=== PATIENT | male | born 1980 | race Caucasian/White ===

== ENCOUNTER 2018-11-19 16:11 | Emergency (ER) | payer SELFPAY ==
[~2018-11-19] VITALS: Ht 170.2 cm; Wt 72.6 kg
[2018-11-19 16:37] VITALS: BP 137/87
--- NOTE | 2018-11-19 16:53 | PHYS DOC ---
Past History Past Medical History: Hepatitis, Kidney Stones Past Surgical History: Other Alcohol Use: None Drug Use: None Adult General Chief Complaint Chief Complaint: SKIN PROBLEM HPI HPI 38-year-old male presents with rash and poly joint pain. The patient just got out of [facility] one week ago today. The next day he had a fever of 102 and broke out in a rash all over his body. The patient was admitted to [facility] on Thursday and Thursday. He was reported to have IV antibiotics. He then left that facility. The patient comes our facility today because he is not getting any better. His rash is continuing to spread now has pal on the posterior of his lower legs. He continues to be very pruritic. He has significant swelling of his bilateral hands and bilateral ankles. They're hot to the touch. He has a history of hep C. Patient does not currently have a fever. He has no idea how he got this rash or what is causing it. Review of Systems Review of Systems Constitutional: Denies fever or chills [] Eyes: Denies change in visual acuity, redness, or eye pain [] HENT: Denies nasal congestion or sore throat [] Respiratory: Denies cough or shortness of breath [] Cardiovascular: No additional information not addressed in HPI [] GI: Denies abdominal pain, nausea, vomiting, bloody stools or diarrhea [] : Denies dysuria or hematuria [] Musculoskeletal: Poly joint pain [] Integument: Rash [] Neurologic: Denies headache, focal weakness or sensory changes [] Endocrine: Denies polyuria or polydipsia [] All other systems were reviewed and found to be within normal limits, except as documented in this note. Physical Exam Physical Exam Constitutional: Well developed, well nourished, no acute distress, non-toxic appearance. [] HENT: Normocephalic, atraumatic, bilateral external ears normal, oropharynx moist, no oral exudates, nose normal. [] Eyes: PERRLA, EOMI, conjunctiva normal, no discharge. [] Neck: Normal range of motion, no tenderness, supple, no stridor. [] Cardiovascular:Heart rate regular rhythm, no murmur [] Lungs & Thorax: Bilateral breath sounds clear to auscultation [] Abdomen: Bowel sounds normal, soft, no tenderness, no masses, no pulsatile masses. [] Skin: Erythematous papules all over the patient's body. Many are excoriated and open. Multiple stages of healing. None appear acutely infected.[] Back: No tenderness, no CVA tenderness. [] Extremities: Erythema and warmth of the bilateral hands and bilateral ankles. Severe swelling of the bilateral ankles. [] Neurologic: Alert and oriented X 3, normal motor function, normal sensory function, no focal deficits noted. [] Psychologic: Affect normal, judgement normal, mood normal. [] Current Patient Data Vital Signs Vital Signs Date Time Temp Pulse Resp B/P (MAP) Pulse Ox O2 Delivery O2 Flow Rate FiO2 11/19/18 16:37 99.8 114 22 94 Room Air EKG EKG [] Radiology/Procedures Radiology/Procedures [] Course & Med Decision Making Course & Med Decision Making Pertinent Labs and Imaging studies reviewed. (See chart for details) The patient has a diffuse rash and probably joint arthritis. His labs are significant for a mildly elevated white count and elevated liver enzymes. He does not have a fever. I discussed the patient with Dr. Yoder, hospitalist at [facility] and he believes the patient can be discharged on steroids and antihistamines. He will need an outpatient workup of his joint inflammation and hepatitis. I discussed this with the patient and the patient is willing to try this treatment. I will give him 30 mg of Toradol in the ED and 125 mg of Solu-Medrol. I'll discharge him with 7 days of prednisone 40 mg daily. We'll also discharge him with hydroxyzine and Pepcid. The patient is stable for discharge at this time. [] Dragon Disclaimer Vanesa Disclaimer This electronic medical record was generated, in whole or in part, using a voice recognition dictation system. Departure Departure: Impression: Primary Impression: Hepatitis B infection with hepatitis C infection Additional Impressions: Rash Polyarthralgia Disposition: 01 HOME, SELF-CARE Condition: STABLE Referrals: [facility] (PCP) Patient Instructions: Arthralgia, [id number]-Cbee, Hepatitis C, Resw-di-Cnza Scripts Famotidine (PEPCID) 20 Mg Tablet 1 TAB PO BID PRN for ITCHING, #60 TAB 0 Refills Prov: ARTI BLANCSA DO 11/19/18 Prednisone (PREDNISONE) 20 Mg Tablet 40 MG PO DAILY for arthritis for 7 Days, #14 TAB Prov: ARTI BLANCAS DO 11/19/18 Hydroxyzine Hcl (HYDROXYZINE HCL) 25 Mg Tablet 1 TAB PO TID PRN for ITCHING, #30 TAB Prov: ARTI BLANCAS DO 11/19/18 Problem Qualifiers ARTI BLANCAS DO Nov 19, 2018 16:53
[2018-11-19 17:17] LABS: BASO # 0.3 x10^3/uL (0.0-0.2); BASO % 2 % (0-3); EOS # 0.3 x10^3/uL (0.0-0.7); EOS % 2 % (0-3); HEMATOCRIT 40.5 % (39.0-53.0); HEMOGLOBIN 13.6 g/dL (13.0-17.5); LYMPH # 2.3 x10^3/uL (1.0-4.8); LYMPH % 18 % (24-48); MEAN CORPUSCULAR HEMOGLOBIN 30 pg (25-35); MEAN CORPUSCULAR HGB CONC 34 g/dL (31-37); MEAN CORPUSCULAR VOLUME 89 fL (79-100); MONO # 1.7 x10^3/uL (0.0-1.1); MONO % 13 % (0-9); NEUT # 8.2 x10^3uL (1.8-7.7); NEUT % 64 % (31-73); PLATELET COUNT 379 x10^3/uL (140-400); RED BLOOD COUNT 4.57 x10^6/uL (4.30-5.70); RED CELL DISTRIBUTION WIDTH 14.4 % (11.5-14.5); WHITE BLOOD COUNT 12.8 x10^3/uL (4.0-11.0)
[2018-11-19 17:29] LABS: ALBUMIN 3.2 g/dL (3.4-5.0); ALBUMIN/GLOBULIN RATIO 0.7 (1.0-1.7); CREATININE 1.6 mg/dL (0.7-1.3); GFR 48.1; POTASSIUM 3.9 mmol/L (3.5-5.1); TOTAL BILIRUBIN 0.9 mg/dL (0.2-1.0); URIC ACID 3.8 mg/dL (3.5-7.2)
[2018-11-19] MEDS ORDERED: FAMO-63 PO (18:41)
[2018-11-19] MEDS ORDERED: HYDR25TA PO (18:41)
[2018-11-19] MEDS ORDERED: PRED20TA PO (18:41)
[2018-11-19] MEDS ORDERED: IV NORMAL SALINE 1,000ML 1,000 ML IV ONE (18:45)
[2018-11-19] MEDS ORDERED: KETOROLAC 30 MG/ML VIAL. IV ONE (18:45)
[2018-11-19] MEDS ORDERED: methylPREDNISolone SOD SUCC PF 125 MG/2 ML VIAL. IV ONE (18:45)
[2018-12-05] MEDS ORDERED: APIX5TAB3 PO (11:32)
[2018-12-05] MEDS ORDERED: SULF1TAB24 PO (11:32)
== END 2018-11-19 20:00 | disposition home or self-care (01) ==
LOC: ER 16:11
DX: B19.20 Unspecified viral hepatitis C without hepatic coma (principal); B19.10 Unspecified viral hepatitis B without hepatic coma; R21 Rash and other nonspecific skin eruption; M25.50 Pain in unspecified joint; Z87.442 Personal history of urinary calculi
CPT/HCPCS: 36415; 80053; 84550; 85025; 96374; 96375; 99283; J1885; J2930; J7030

== ENCOUNTER 2018-11-30 20:43 | Inpatient (IN) | payer SELFPAY ==
[~2018-11-30] VITALS: Ht 170.2 cm; Wt 68.1 kg
[~2018-11-30 20:43] MED LIST: FAMO-63 PO; HYDR25TA PO; PRED20TA PO
[2018-11-30] MEDS ORDERED: DIPHTH,PERTUSS(ACELL),TET TOX 0.5 ML DISP.SYRIN. VAX IM ONE (21:15)
--- NOTE | 2018-11-30 21:15 | ED.ADGEN ---
Past History Past Medical History: Hepatitis, Kidney Stones, Other Past Surgical History: Other Alcohol Use: None Drug Use: None Adult General Chief Complaint Chief Complaint ".. I got hep. C.. I was in here the other day for ankle swelling... but today... My lt. leg is hot.. and red.. here near the knee.. and behind.... HPI HPI Patient is a 38 year old male who presents with above hx and development of Lt. leg localized edema and erythema. Pt. patient has cording just above casted posterior thigh. Distal neurovascular equal to right foot. Patient has had MRSA in the past. Patient does have a history of hepatitis C. Patient has past history of polysubstance abuse. Patient has stooped complaints of fever and chills. No previous history of DVTs. No history of coagulopathy. No family history of early coagulopathy problems. Patient does smoke. Review of Systems Review of Systems Constitutional: Denies fever or chills [] Eyes: Denies change in visual acuity, redness, or eye pain [] HENT: Denies nasal congestion or sore throat [] Respiratory: Denies cough or shortness of breath [] Cardiovascular: No additional information not addressed in HPI [] GI: Denies abdominal pain, nausea, vomiting, bloody stools or diarrhea [] : Denies dysuria or hematuria [] Musculoskeletal: Denies back pain or joint pain []complaints of left leg pain as per history of present illness Integument: Denies rash or skin lesions [] Neurologic: Denies headache, focal weakness or sensory changes [] Endocrine: Denies polyuria or polydipsia [] All other systems were reviewed and found to be within normal limits, except as documented in this note. Family History Family History Noncontributory Current Medications Current Medications Current Medications Medications (Trade) Dose Ordered Sig/Allen Start Time Stop Time Status Last Admin Dose Admin Acetaminophen (Tylenol) 650 mg PRN Q4HRS PRN 11/30/18 23:30 12/01/18 23:29 Diphtheria/ Tetanus/Acell Pertussis (Boostrix) 0.5 ml ONCE ONCE 11/30/18 21:15 11/30/18 21:24 DC 11/30/18 23:24 0.5 ML Lactated Ringer's 1,000 ml @ 100 mls/hr Q10H 11/30/18 21:30 12/01/18 07:29 11/30/18 23:22 100 MLS/HR Ondansetron HCl (Zofran) 4 mg PRN Q4HRS PRN 11/30/18 23:30 12/01/18 23:29 Trimethoprim/ Sulfamethoxazole (Bactrim Ds) 1 tab 1X ONCE 11/30/18 21:30 11/30/18 21:31 DC 11/30/18 23:24 1 TAB Allergies Allergies Allergies Coded Allergies Type Severity Reaction Last Updated Verified No Known Drug Allergies 11/19/18 No Physical Exam Physical Exam Constitutional: Moderately acute distress, non-toxic appearance. [] HENT: Normocephalic, atraumatic, bilateral external ears normal, oropharynx moist, no oral exudates, nose normal. Poor dentition Eyes: PERRLA, EOMI, conjunctiva normal, no discharge. [] Neck: Normal range of motion, no tenderness, supple, no stridor. [] Cardiovascular: Tachycardia Heart rate regular rhythm, no murmur [] Lungs & Thorax: Bilateral breath sounds equal apex scattered wheezes auscultation [] Abdomen: Bowel sounds normal, soft, no tenderness, no masses, no pulsatile masses. [] Skin: Warm, dry, no erythema, no rash. [] Back: No tenderness, no CVA tenderness. [] Extremities: No tenderness, no cyanosis, no clubbing, ROM intact, left leg edema., Erythema and cording. Neurologic: Alert and oriented X 3, normal motor function, normal sensory function, no focal deficits noted. [] Psychologic: Affect anxious, judgement normal, mood normal. [] Current Patient Data Vital Signs Vital Signs Date Time Temp Pulse Resp B/P (MAP) Pulse Ox O2 Delivery O2 Flow Rate FiO2 11/30/18 20:48 98.7 111 20 96 Room Air Lab Results Laboratory Tests Test 11/30/18 21:30 11/30/18 22:40 Urine Collection Type Unknown Urine Color Yellow Urine Clarity Clear Urine pH 6.0 Urine Specific [place] 1.020 Urine Protein Neg (NEG-TRACE) Urine Glucose (UA) Neg mg/dL (NEG) Urine Ketones (Stick) Trace mg/dL (NEG) Urine Blood Small (NEG) Urine Nitrite Neg (NEG) Urine Bilirubin Neg (NEG) Urine Urobilinogen Dipstick 2 mg/dL (0.2 mg/dL) Urine Leukocyte Esterase Neg (NEG) Urine RBC Occ /HPF (0-2) Urine WBC 1-4 /HPF (0-4) Urine Squamous Epithelial Cells Occ /LPF Urine Bacteria 0 /HPF (0-FEW) Urine Opiates Screen Pos (NEG) Urine Methadone Screen Pos (NEG) Urine Barbiturates Neg (NEG) Urine Phencyclidine Screen Neg (NEG) Urine Amphetamine/Methamphetamine Pos (NEG) Urine Benzodiazepines Screen Neg (NEG) Urine Cocaine Screen Neg (NEG) Urine Cannabinoids Screen Neg (NEG) Urine Ethyl Alcohol Neg (NEG) White Blood Count 17.5 x10^3/uL (4.0-11.0) H Red Blood Count 5.00 x10^6/uL (4.30-5.70) Hemoglobin 15.1 g/dL (13.0-17.5) Hematocrit 44.2 % (39.0-53.0) Mean Corpuscular Volume 89 fL (79-100) Mean Corpuscular Hemoglobin 30 pg (25-35) Mean Corpuscular Hemoglobin Concent 34 g/dL (31-37) Red Cell Distribution Width 14.8 % (11.5-14.5) H Platelet Count 382 x10^3/uL (140-400) Neutrophils (%) (Auto) 64 % (31-73) Lymphocytes (%) (Auto) 22 % (24-48) L Monocytes (%) (Auto) 12 % (0-9) H Eosinophils (%) (Auto) 2 % (0-3) Basophils (%) (Auto) 0 % (0-3) Neutrophils # (Auto) 11.2 x10^3uL (1.8-7.7) H Lymphocytes # (Auto) 3.8 x10^3/uL (1.0-4.8) Monocytes # (Auto) 2.1 x10^3/uL (0.0-1.1) H Eosinophils # (Auto) 0.3 x10^3/uL (0.0-0.7) Basophils # (Auto) 0.1 x10^3/uL (0.0-0.2) Segmented Neutrophils % 68 % (35-66) H Band Neutrophils % 5 % (0-9) Lymphocytes % 21 % (24-48) L Monocytes % 6 % (0-10) Platelet Estimate Adequate (ADEQUATE) Prothrombin Time 11.0 SEC (9.4-11.4) Prothrombin Time INR 1.1 (0.9-1.1) PTT 28 SEC (23-33) D-Dimer (Latricia) 0.82 mg/L (0.00-0.50) H Sodium Level 132 mmol/L (136-145) L Potassium Level 3.4 mmol/L (3.5-5.1) L Chloride Level 97 mmol/L (98-107) L Carbon Dioxide Level 28 mmol/L (21-32) Anion Gap 7 (6-14) Blood Urea Nitrogen 18 mg/dL (8-26) Creatinine 1.1 mg/dL (0.7-1.3) Estimated GFR (Cockcroft-Gault) 74.1 Glucose Level 89 mg/dL (70-99) Calcium Level 8.7 mg/dL (8.5-10.1) Magnesium Level 1.7 mg/dL (1.8-2.4) L Total Bilirubin 1.2 mg/dL (0.2-1.0) H Direct Bilirubin 0.4 mg/dL (0.0-0.2) H Aspartate Amino Transferase (AST) 199 U/L (15-37) H Alanine Aminotransferase (ALT) 293 U/L (16-63) H Alkaline Phosphatase 113 U/L (46-116) Creatine Kinase 137 U/L (39-308) Troponin I Quantitative < 0.017 ng/mL (0-0.055) EW-Ahb-G-Type Natriuretic Peptide 64 pg/mL (0-124) Total Protein 8.0 g/dL (6.4-8.2) Albumin 3.3 g/dL (3.4-5.0) L Lipase 43 U/L (73-393) L EKG EKG My interpretation EKG shows a sinus rhythm at 97 bpm. No findings acute STEMI with contralateral changes.[] Radiology/Procedures Radiology/Procedures US=Superficial DVT- Occlusive Thrombus thigh to lwer leg mid GSV[] Course & Med Decision Making Course & Med Decision Making Pertinent Labs and Imaging studies reviewed. (See chart for details) . Patient admitted to Dr. Hernandez further evaluation and treatment. [] Final Impression Final Impression 1. Lt. leg edema 2. Hx. Hept. C[] 3. Superficial DVT Lt. leg 4. Leukocytosis 17.5 5. Hx., Polysubstance Abuse 6. Mild Elevation of D-dimer 0.82 7. Hyponatremia 132 8. Elevated AST, ALT, Alk Phos, Bili, 9. Cellulitis Dragon Disclaimer Dragon Disclaimer This electronic medical record was generated, in whole or in part, using a voice recognition dictation system. Discharge Summary Visit Information Final Diagnosis Problems Medical Problems: (1) Cellulitis Status: Acute (2) DVT femoral (deep venous thrombosis) with thrombophlebitis Status: Acute Brief Hospital Course Allergies Allergies Coded Allergies Type Severity Reaction Last Updated Verified No Known Drug Allergies 11/19/18 No Vital Signs Vital Signs Date Time Temp Pulse Resp B/P (MAP) Pulse Ox O2 Delivery O2 Flow Rate FiO2 11/30/18 20:48 98.7 111 20 96 Room Air Lab Results Laboratory Tests Test 11/30/18 21:30 11/30/18 22:40 Urine Collection Type Unknown Urine Color Yellow Urine Clarity Clear Urine pH 6.0 Urine Specific [place] 1.020 Urine Protein Neg (NEG-TRACE) Urine Glucose (UA) Neg mg/dL (NEG) Urine Ketones (Stick) Trace mg/dL (NEG) Urine Blood Small (NEG) Urine Nitrite Neg (NEG) Urine Bilirubin Neg (NEG) Urine Urobilinogen Dipstick 2 mg/dL (0.2 mg/dL) Urine Leukocyte Esterase Neg (NEG) Urine RBC Occ /HPF (0-2) Urine WBC 1-4 /HPF (0-4) Urine Squamous Epithelial Cells Occ /LPF Urine Bacteria 0 /HPF (0-FEW) Urine Opiates Screen Pos (NEG) Urine Methadone Screen Pos (NEG) Urine Barbiturates Neg (NEG) Urine Phencyclidine Screen Neg (NEG) Urine Amphetamine/Methamphetamine Pos (NEG) Urine Benzodiazepines Screen Neg (NEG) Urine Cocaine Screen Neg (NEG) Urine Cannabinoids Screen Neg (NEG) Urine Ethyl Alcohol Neg (NEG) White Blood Count 17.5 x10^3/uL (4.0-11.0) Red Blood Count 5.00 x10^6/uL (4.30-5.70) Hemoglobin 15.1 g/dL (13.0-17.5) Hematocrit 44.2 % (39.0-53.0) Mean Corpuscular Volume 89 fL (79-100) Mean Corpuscular Hemoglobin 30 pg (25-35) Mean Corpuscular Hemoglobin Concent 34 g/dL (31-37) Red Cell Distribution Width 14.8 % (11.5-14.5) Platelet Count 382 x10^3/uL (140-400) Neutrophils (%) (Auto) 64 % (31-73) Lymphocytes (%) (Auto) 22 % (24-48) Monocytes (%) (Auto) 12 % (0-9) Eosinophils (%) (Auto) 2 % (0-3) Basophils (%) (Auto) 0 % (0-3) Neutrophils # (Auto) 11.2 x10^3uL (1.8-7.7) Lymphocytes # (Auto) 3.8 x10^3/uL (1.0-4.8) Monocytes # (Auto) 2.1 x10^3/uL (0.0-1.1) Eosinophils # (Auto) 0.3 x10^3/uL (0.0-0.7) Basophils # (Auto) 0.1 x10^3/uL (0.0-0.2) Segmented Neutrophils % 68 % (35-66) Band Neutrophils % 5 % (0-9) Lymphocytes % 21 % (24-48) Monocytes % 6 % (0-10) Platelet Estimate Adequate (ADEQUATE) Prothrombin Time 11.0 SEC (9.4-11.4) Prothromb Time International Ratio 1.1 (0.9-1.1) Activated Partial Thromboplast Time 28 SEC (23-33) D-Dimer (Latricia) 0.82 mg/L (0.00-0.50) Sodium Level 132 mmol/L (136-145) Potassium Level 3.4 mmol/L (3.5-5.1) Chloride Level 97 mmol/L (98-107) Carbon Dioxide Level 28 mmol/L (21-32) Anion Gap 7 (6-14) Blood Urea Nitrogen 18 mg/dL (8-26) Creatinine 1.1 mg/dL (0.7-1.3) Estimated GFR (Cockcroft-Gault) 74.1 Glucose Level 89 mg/dL (70-99) Calcium Level 8.7 mg/dL (8.5-10.1) Magnesium Level 1.7 mg/dL (1.8-2.4) Total Bilirubin 1.2 mg/dL (0.2-1.0) Direct Bilirubin 0.4 mg/dL (0.0-0.2) Aspartate Amino Transf (AST/SGOT) 199 U/L (15-37) Alanine Aminotransferase (ALT/SGPT) 293 U/L (16-63) Alkaline Phosphatase 113 U/L (46-116) Creatine Kinase 137 U/L (39-308) Troponin I Quantitative < 0.017 ng/mL (0-0.055) FZ-Qdl-M-Type Natriuretic Peptide 64 pg/mL (0-124) Total Protein 8.0 g/dL (6.4-8.2) Albumin 3.3 g/dL (3.4-5.0) Lipase 43 U/L (73-393) Brief Hospital Course Mr. Win is a 38 old male who presented with left leg superficial DVT and cellulitis. Admitted to Discharge Information Condition at Discharge: Improved Dischare Medications Current Medications Lactated Ringer's 1,000 ml @ 100 mls/hr Q10H IV Last administered on at 23:22; Admin Dose 100 MLS/HR; Start 11/30/18 at 21:30; Stop 12/01/18 at 07: 29 Diphtheria/ Tetanus/Acell Pertussis (Boostrix) 0.5 ml ONCE ONCE VAX IM Last administered on 11/30/18at 23:24; Admin Dose 0.5 ML; Start 11/30/18 at 21:15; Stop 11/30/18 at 21:24; Status DC Trimethoprim/ Sulfamethoxazole (Bactrim Ds) 1 tab 1X ONCE PO Last administered on 11/30/18at 23:24; Admin Dose 1 TAB; Start 11/30/18 at 21:30; Stop 11/30/18 at 21:31; Status DC Ondansetron HCl (Zofran) 4 mg PRN Q4HRS PRN IV NAUSEA/VOMITING; Start 11/30/18 at 23:30; Stop 12/01/18 at 23:29 Acetaminophen (Tylenol) 650 mg PRN Q4HRS PRN PO FEVER; Start 11/30/18 at 23:30 ; Stop 12/01/18 at 23:29 Active Scripts Active Pepcid (Famotidine) 20 Mg Tablet 1 Tab PO BID PRN Prednisone 20 Mg Tablet 40 Mg PO DAILY 7 Days Hydroxyzine Hcl 25 Mg Tablet 1 Tab PO TID PRN Dragon Disclaimer This chart was dictated in whole or in part using Voice Recognition software in a busy, high-work load, and often noisy Emergency Department environment. It may contain unintended and wholly unrecognized errors or omissions. LISSY YOUNGER MD Nov 30, 2018 21:15
[2018-11-30] MEDS ORDERED: IV RINGERS SOLUTION,LACTATED 1,000 ML IV SCH (21:30)
[2018-11-30] MEDS ORDERED: SMZ/TMP 800/160MG TABLET. PO ONE (21:30)
--- NOTE | 2018-11-30 21:56 | EKG ---
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
[2018-11-30 22:01] LABS: BARBITURATES NEG (NEG); BENZODIAZEPINES NEG (NEG); CANNABINOIDS NEG (NEG); COCAINE NEG (NEG); METHADONE POS (NEG); OPIATES POS (NEG); PHENCYCLIDINE NEG (NEG)
[2018-11-30 22:02] LABS: BILIRUBIN,URINE NEG (NEG); CLARITY,URINE CLEAR; COLOR,URINE YELLOW; GLUCOSE,URINE NEG (NEG); NITRITE,URINE NEG (NEG); UROBILINOGEN,URINE 2 mg/dL (0.2 mg/dL)
[2018-11-30 22:03] LABS: AMPHETAMINE/METHAMPHETAMINE POS (NEG); BACTERIA,URINE 0 /HPF (0-FEW); RBC,URINE OCC /HPF (0-2); SQUAMOUS EPITHELIAL CELL,UR OCC /LPF
[2018-11-30 23:01] LABS: BASO # 0.1 x10^3/uL (0.0-0.2); BASO % 0 % (0-3); EOS # 0.3 x10^3/uL (0.0-0.7); EOS % 2 % (0-3); HEMATOCRIT 44.2 % (39.0-53.0); HEMOGLOBIN 15.1 g/dL (13.0-17.5); LYMPH # 3.8 x10^3/uL (1.0-4.8); LYMPH % 22 % (24-48); MEAN CORPUSCULAR HEMOGLOBIN 30 pg (25-35); MEAN CORPUSCULAR HGB CONC 34 g/dL (31-37); MEAN CORPUSCULAR VOLUME 89 fL (79-100); MONO # 2.1 x10^3/uL (0.0-1.1); MONO % 12 % (0-9); NEUT # 11.2 x10^3uL (1.8-7.7); NEUT % 64 % (31-73); PLATELET COUNT 382 x10^3/uL (140-400); RED CELL DISTRIBUTION WIDTH 14.8 % (11.5-14.5); WHITE BLOOD COUNT 17.5 x10^3/uL (4.0-11.0)
[2018-11-30 23:20] LABS: % BANDS 5 % (0-9); % LYMPHS 21 % (24-48); % MONOS 6 % (0-10); % SEGS 68 % (35-66); PLT ESTIMATE ADEQUATE (ADEQUATE)
[2018-11-30 23:22] LABS: ALBUMIN 3.3 g/dL (3.4-5.0); CALCIUM 8.7 mg/dL (8.5-10.1); CREATININE 1.1 mg/dL (0.7-1.3); DIRECT BILIRUBIN 0.4 mg/dL (0.0-0.2); GFR 74.1; MAGNESIUM 1.7 mg/dL (1.8-2.4); POTASSIUM 3.4 mmol/L (3.5-5.1); TOTAL BILIRUBIN 1.2 mg/dL (0.2-1.0)
[2018-11-30] MEDS ORDERED: ONDANSETRON PF 4 MG/2 ML VIAL. IV PRN (23:30)
[2018-11-30] MEDS ORDERED: ENOXAPARIN ** NOTE DOSE ** SYRINGE SQ ONE (23:45)
[2018-11-30] MEDS ORDERED: ANTI-COAG MONITOR BY PHARMACY. MC PRN (23:45)
[2018-11-30] MEDS ORDERED: cefTRIAXone IM 1 GM VIAL IM ONE (23:45)
--- NOTE | 2018-11-30 23:46 | RAD ---
Chest AP portable at 2124: Reason for examination: Chest pain and lower extremity pain and swelling. Congestive heart failure. The heart size is normal. Mediastinum is unremarkable. Lung muller are clear. No acute bony abnormalities are seen. Old healed rib fracture at the left seventh rib posteriorly. IMPRESSION: No acute cardiopulmonary disease. Left lower extremity venous Doppler: The left lower extremity venous system was evaluated from the left common femoral and greater saphenous veins distally to the calf veins with grayscale imaging, color-flow imaging and spectral analysis. The greater saphenous vein shows thrombosis with occlusion from the distal thigh into the midcalf with adjacent edema. The remaining venous structures shows normal blood flow without deep venous thrombosis and normal response to compression and augmentation. IMPRESSION: Occlusive thrombus in the greater saphenous vein from the distal thigh to the mid calf. No other deep venous thrombosis evident. Electronically signed by: Meli Rojas MD (11/30/2018 11:43 PM) [facility]
[2018-12-01] MEDS ORDERED: KETOROLAC 30 MG/ML VIAL. IV ONE (00:45)
[2018-12-01 01:01] VITALS: BP 147/86
[2018-12-01 04:57] VITALS: BP 109/59
[2018-12-01 07:01] LABS: BASO % 0 % (0-3); EOS # 0.2 x10^3/uL (0.0-0.7); EOS % 2 % (0-3); HEMATOCRIT 39.9 % (39.0-53.0); HEMOGLOBIN 13.9 g/dL (13.0-17.5); LYMPH # 3.3 x10^3/uL (1.0-4.8); LYMPH % 20 % (24-48); MEAN CORPUSCULAR HEMOGLOBIN 31 pg (25-35); MEAN CORPUSCULAR HGB CONC 35 g/dL (31-37); MEAN CORPUSCULAR VOLUME 88 fL (79-100); MONO # 1.9 x10^3/uL (0.0-1.1); MONO % 12 % (0-9); NEUT # 10.8 x10^3uL (1.8-7.7); NEUT % 67 % (31-73); PLATELET COUNT 302 x10^3/uL (140-400); RED BLOOD COUNT 4.53 x10^6/uL (4.30-5.70); RED CELL DISTRIBUTION WIDTH 14.5 % (11.5-14.5); WHITE BLOOD COUNT 16.3 x10^3/uL (4.0-11.0)
[2018-12-01 07:19] LABS: CALCIUM 8.1 mg/dL (8.5-10.1); GFR 82.8; POTASSIUM 3.9 mmol/L (3.5-5.1)
[2018-12-01] MEDS ORDERED: IPRATRPIUM/ALBUTEROL 0.5/2.5MG 3 ML NEBU. NEB SCH (08:00)
[2018-12-01] MEDS ORDERED: FAMOTIDINE 20 MG TABLET PO PRN (09:00)
[2018-12-01] MEDS: MAGNESIUM OXIDE 400 MG TABLET PO SCH ×2 (09:13→22:29)
[2018-12-01] MEDS: LACTOBACILLUS RHAMNOSUS GG 1 CAPSULE. PO SCH ×2 (09:13→22:29)
[2018-12-01] MEDS: SMZ/TMP 800/160MG TABLET. PO SCH ×2 (09:14→22:30)
[2018-12-01] MEDS: ENOXAPARIN ** NOTE DOSE ** SYRINGE SQ SCH ×2 (09:15→22:30)
[2018-12-01] MEDS ORDERED: IPRATRPIUM/ALBUTEROL 0.5/2.5MG 3 ML NEBU. NEB PRN (09:15)
[2018-12-01 11:07] VITALS: BP 132/79
[2018-12-01] MEDS: ACETAMINOPHEN 325 MG TABLET PO PRN ×3 (11:47→22:35)
[2018-12-01 14:57] VITALS: BP 106/73
--- NOTE | 2018-12-01 15:35 | HP ---
ADMIT DATE: 11/30/2018 HISTORY OF PRESENT ILLNESS: The patient is a 38-year-old male patient who presented to the Emergency Room with a complaint of pain and swelling of his left ankle that has been going on for 4 days. His leg was red and hot to touch near the medial aspect and posterior aspect of left knee. He was evaluated in the Emergency Room and was diagnosed with left lower extremity cellulitis. Also a Doppler ultrasound showed that he has left lower extremity DVT and therefore, the patient was admitted and started on Lovenox. He was also started on IV antibiotic and admitted for further evaluation and treatment. PAST MEDICAL HISTORY: Significant for bilateral nephrolithiasis and chronic hepatitis C. PAST SURGICAL HISTORY: Significant for percutaneous nephrostomy tube placement on both sides. He also has probably cystoscopy and stone retrieval. ALLERGIES: He has no known drug allergies. MEDICATIONS: He is currently on no medication except famotidine 20 mg twice a day. FAMILY HISTORY: He has 1 brother older and he is known to have hepatitis C. His mother is alive at the age of 65 and positive for hepatitis C. His father at age 48 as he was apparently burnt in fire. SOCIAL HISTORY: He is single, has 5 children, a son and 4 daughters. Smokes a pack a day, does not drink alcohol; however, he used heroin, amphetamine. 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 REVIEW OF SYSTEMS: As per history of present illness. PHYSICAL EXAMINATION: GENERAL: When I examined on arrival to the Emergency Room, he was pale, somewhat cachectic, but no jaundice, cyanosis, or thyromegaly. No jugular venous distension. No limb edema. VITAL SIGNS: His heart rate was 111, blood pressure was 164/91, temperature was 98.7, respiratory rate 20, and oxygen saturation was 96%. HEAD, EYES, EARS, NOSE AND THROAT: Showed normocephalic, atraumatic. NECK: Supple. HEART: Showed normal first and second heart sounds. No gallop or murmur. CHEST: Clear to auscultation. No crepitation or rhonchi. ABDOMEN: Scaphoid, soft, nontender. NEUROLOGIC: He was awake, alert, responding appropriately. All his cranial nerves are intact. EXTREMITIES: He moves extremities without difficulty. Examination of the left lower extremity compared to the right lower extremity showed that he has marked swelling and erythema on the medial aspect of the left leg and left thigh, has also some tenderness on the calf muscle. LABORATORY DATA: His lab work on admission showed a white cell count 17,500, hemoglobin 15, hematocrit 44, MCV 89 and platelet count of 382,000 with normal manual differential. His chemistry showed serum sodium of 132, potassium 3.4, chloride 97, bicarbonate 28, anion gap of 7, BUN 18, creatinine 1.1, estimated GFR was 89 mL per minute. His calcium was 8.7, magnesium was 1.7. Total bilirubin slightly elevated. AST, ALT are elevated. Alkaline phosphatase was normal. His total protein was 8, albumin was 3.3. Serum lipase was normal. TSH was normal also, his prothrombin time was 11, INR 1.1, aPTT was 28. D-dimer was elevated at 0.81. Urinalysis was essentially unremarkable and toxic screen was positive for opiates, methadone as well as amphetamine, methamphetamine. ASSESSMENT AND PLAN: The patient was admitted with a left lower extremity cellulitis, started on IV Rocephin and Bactrim. He was also found to have aggressive thrombus in the greater saphenous vein from the distal thigh to the mid calf and no other deep venous thrombosis evident. His chest x-ray basically showed no acute cardiopulmonary disease. He was admitted and was treated with Lovenox 70 mg subQ twice a day for his left lower extremity DVT, was started also on Rocephin and Bactrim for left lower extremity cellulitis. We will follow his labs closely and decide further management accordingly. ADAN GOLDSTEIN MD DR: ISAURA/vangie JOB#: [id number] / [id number]
[2018-12-01 19:58] VITALS: BP 122/76
--- NOTE | 2018-12-01 22:14 | PN ---
DATE: 12/01/2018 SUBJECTIVE: The patient is resting slightly propped up in bed, in no apparent distress. He continued to have some pain in his left lower extremity with redness and swelling. He also spiked his temperature this morning up to 101.1. PHYSICAL EXAMINATION: GENERAL: When I examined him, he looked pale but no jaundice, cyanosis, or thyromegaly. No jugular venous distention. No limb edema. VITAL SIGNS: His heart rate was 95, blood pressure was 132/79, temperature was 101.1, respiratory rate 20, and oxygen saturation was 93% on room air. HEAD, EYES, EARS, NOSE AND THROAT: Showed normocephalic, atraumatic. NECK: Supple. HEART: Showed normal first and second heart sounds with no gallop, rub or murmur. CHEST: Clear to auscultation. No crepitation or rhonchi. ABDOMEN: Distended, soft, nontender. NEUROLOGIC: He is awake, alert, responding appropriately. All cranial nerves intact. He moves extremities without difficulty. SKIN: Examination of the skin showed he continued to have some redness and swelling on the medial aspect of the left leg and left thigh. He has also extensive tattoos covered most of his skin. His intake and output was incompletely recorded. LABORATORY DATA: His lab work showed white cell count slightly down to 16,100, hemoglobin 14, hematocrit 40, MCV 88, and platelet count 302,000. His serum sodium was 133, potassium 3.9, chloride 100, bicarbonate 27, anion gap of 6, BUN 17, creatinine 1, estimated GFR was 111, and glucose was 111, calcium was 8.2. ASSESSMENT: In summary, this is a 38-year-old male patient with known polysubstance abuse as well as known history of chronic hepatitis C, admitted with swelling and pain in the left lower extremity. PLAN: We will continue with IV Rocephin. Continue with Bactrim. Continue with DVT treatment. We will monitor his labs again tomorrow and decide the further management accordingly. ADAN GOLDSTEIN MD DR: ISAURA/vangie JOB#: [id number] / [id number]
[2018-12-02] MEDS ORDERED: CEFU500T46 PO (00:50)
[2018-12-02 01:24] VITALS: BP 109/65
[2018-12-02] MEDS ORDERED: CEPHALEXIN 250 MG CAPSULE PO ONE (02:00)
[2018-12-02 05:20] VITALS: BP 121/78
[2018-12-02 06:16] LABS: HEMATOCRIT 45.8 % (39.0-53.0); HEMOGLOBIN 15.6 g/dL (13.0-17.5); RED BLOOD COUNT 5.1 x10^6/uL (4.30-5.70); RED CELL DISTRIBUTION WIDTH 14.8 % (11.5-14.5); WHITE BLOOD COUNT 15.2 x10^3/uL (4.0-11.0)
[2018-12-02 06:33] LABS: ALBUMIN 2.9 g/dL (3.4-5.0); ALBUMIN/GLOBULIN RATIO 0.7 (1.0-1.7); CALCIUM 8.4 mg/dL (8.5-10.1); CREATININE 0.9 mg/dL (0.7-1.3); GFR 93.5; POTASSIUM 4.5 mmol/L (3.5-5.1); TOTAL BILIRUBIN 0.9 mg/dL (0.2-1.0); TOTAL PROTEIN 6.8 g/dL (6.4-8.2)
[2018-12-02] MEDS ORDERED: ACETAMINOPHEN 325 MG TABLET PO PRN (06:45)
[2018-12-02] MEDS: MAGNESIUM OXIDE 400 MG TABLET PO SCH ×2 (08:16→20:18)
[2018-12-02] MEDS: SMZ/TMP 800/160MG TABLET. PO SCH ×2 (08:16→20:18)
[2018-12-02] MEDS: LACTOBACILLUS RHAMNOSUS GG 1 CAPSULE. PO SCH ×2 (08:16→20:18)
[2018-12-02] MEDS: ENOXAPARIN ** NOTE DOSE ** SYRINGE SQ SCH ×2 (08:19→20:18)
[2018-12-02 10:00] VITALS: BP 127/83
[2018-12-02] MEDS ORDERED: VANCOMYCIN PER PHARMACY MC PRN (12:00)
[2018-12-02] MEDS: oxyCODONE IR 5 MG TABLET PO PRN ×2 (12:26→18:42)
[2018-12-02 14:34] VITALS: BP 118/73
[2018-12-02] MEDS ORDERED: VANCOMYCIN 1.75 GM in IV NORMAL SALINE 500ML 500 ML IV ONE (18:30)
[2018-12-02 19:06] VITALS: BP 121/76
--- NOTE | 2018-12-02 20:23 | PN ---
DATE: 12/02/2018 SUBJECTIVE: The patient is resting flat in bed, complaining of severe pain in his left leg. The erythema and swelling has definitely worsened. His white cell count continues to be high. PHYSICAL EXAMINATION: GENERAL: When I examined him, he looked pale, cachectic, but no jaundice, cyanosis, or thyromegaly. No jugular venous distension. No lower limb edema. VITAL SIGNS: His heart rate was 88, blood pressure was 127/83, temperature was 98, respiratory rate was 20, and oxygen saturation was 95%. HEAD, EYES, EARS, NOSE AND THROAT: Normocephalic, atraumatic. NECK: Supple. HEART: Showed normal first and second sounds. No gallop, rub or murmur. CHEST: Clear to auscultation. No crepitation or rhonchi. ABDOMEN: Distended, soft. NEUROLOGIC: He was sleepy, but arousable. All cranial nerves intact. He moves extremities without difficulty. Examination of the left lower extremity compared to the right showed that there is marked redness, swelling and tenderness on the medial aspect of the left knee, left thigh and the upper part of the left leg. His intake and output were incompletely recorded. LABORATORY DATA: Showed a serum sodium 133, potassium 4.5, chloride 100, bicarbonate 24, anion gap of 9, BUN 12, creatinine 0.9, estimated GFR was 94 mL per minute, his glucose was 90, calcium was 8.4. Total bilirubin and alkaline phosphatase normal. AST, ALT elevated. Total protein was 6.8, albumin 2.9. His prothrombin time was 11, INR 1.1. His treponema pallidum antibodies were nonreactive. Hepatitis A IgM antibody nonreactive; however, he is positive for hepatitis B, C and HIV 1 and 2. ASSESSMENT AND PLAN: Left lower extremity deep venous thrombosis for which he is on Lovenox 1 mg/kg subcutaneously twice a day. His left lower extremity cellulitis for which we need to place a PICC line, start him on vancomycin. We will start him on oxycodone immediate release 5 mg. ADAN GOLDSTEIN MD DR: ISAURA/vangie JOB#: [id number] / [id number]
[2018-12-02 22:09] VITALS: BP 119/76
[2018-12-03] MEDS: VANCOMYCIN 1 GM in IV NORMAL SALINE 250ML 250 ML IV SCH ×3 (02:18→18:10)
[2018-12-03] MEDS: oxyCODONE IR 5 MG TABLET PO PRN ×3 (02:18→16:18)
[2018-12-03 06:04] VITALS: BP 111/70
[2018-12-03] MEDS: SMZ/TMP 800/160MG TABLET. PO SCH ×2 (07:58→20:38)
[2018-12-03] MEDS: ENOXAPARIN ** NOTE DOSE ** SYRINGE SQ SCH ×2 (07:58→20:39)
[2018-12-03] MEDS: LACTOBACILLUS RHAMNOSUS GG 1 CAPSULE. PO SCH ×2 (07:58→20:38)
[2018-12-03 10:41] VITALS: BP 105/66
[2018-12-03 13:11] LABS: HCV ULTRA QUANT PCR See Final Results IU/mL (.)
[2018-12-03 17:42] LABS: VANC TR 10.2 mcg/mL (10.0-20.0)
[2018-12-03 19:20] VITALS: BP 106/70
--- NOTE | 2018-12-03 21:22 | PN ---
DATE: 12/03/2018 SUBJECTIVE: The patient is resting, slightly propped up, sleeping comfortably, in no apparent distress. He is arousable. On questioning him, he continued to complain of pain in his left leg. Although, clinically, the swelling and erythema has much improved. He has afebrile over more than 24 hours now. PHYSICAL EXAMINATION: GENERAL: When I examined him, he looked pale, but no jaundice, cyanosis, or thyromegaly. No jugular venous distention. No limb edema. VITAL SIGNS: His heart rate was 93, blood pressure 121/76, temperature was 98.7, respiratory rate 22, and oxygen saturation was 94%. The rest of clinical examination is stable. EXTREMITIES: His left lower extremity, especially around his left knee medially is still red and swollen, but much improved compared to yesterday. His intake was 1200, no output was recorded. LABORATORY DATA: As of yesterday, his serum sodium was 133, potassium 4.5, chloride 100, bicarbonate 24, anion gap of 9, BUN 12, creatinine 0.9. His AST and ALT are elevated; however, total bilirubin and alkaline phosphatase were normal. ASSESSMENT: 1. Left lower extremity deep vein thrombosis, which he is on Lovenox 1 mg/kg subcutaneously twice a day. 2. Left lower extremity cellulitis for which he is currently on IV vancomycin as well as oral Bactrim. 3. He is hepatitis C and B positive. Apparently, HIV 1 and 2 were negative. 4. Polysubstance abuse as his toxicology screen was positive for opiates, methadone, amphetamine, and methamphetamine. ADAN GOLDSTEIN MD DR: ISAURA/vangie JOB#: [id number] / [id number]
[2018-12-03 23:29] VITALS: BP 116/74
[2018-12-04] MEDS: VANCOMYCIN 1 GM in IV NORMAL SALINE 250ML 250 ML IV SCH ×3 (01:55→18:45)
[2018-12-04] MEDS: oxyCODONE IR 5 MG TABLET PO PRN ×3 (01:58→20:49)
[2018-12-04 08:13] LABS: CALCIUM 8.3 mg/dL (8.5-10.1); GFR 82.8; POTASSIUM 4.2 mmol/L (3.5-5.1)
[2018-12-04 08:14] LABS: HEMATOCRIT 41.4 % (39.0-53.0); HEMOGLOBIN 14.2 g/dL (13.0-17.5); RED BLOOD COUNT 4.68 x10^6/uL (4.30-5.70); RED CELL DISTRIBUTION WIDTH 14.5 % (11.5-14.5); WHITE BLOOD COUNT 13.1 x10^3/uL (4.0-11.0)
[2018-12-04] MEDS: LACTOBACILLUS RHAMNOSUS GG 1 CAPSULE. PO SCH ×2 (09:08→20:48)
[2018-12-04] MEDS: SMZ/TMP 800/160MG TABLET. PO SCH ×2 (09:09→20:48)
[2018-12-04] MEDS: ENOXAPARIN ** NOTE DOSE ** SYRINGE SQ SCH ×2 (09:09→20:48)
[2018-12-04 10:56] VITALS: BP 109/68
--- NOTE | 2018-12-04 12:53 | PN ---
DATE: 12/04/2018 SUBJECTIVE: The patient is resting flat, comfortably in bed, in no apparent distress, sleeping comfortably. On questioning him, he denied any complaint except he continued to have pain in his left lower extremity. PHYSICAL EXAMINATION: GENERAL: When I examined him, he looked pale, no jaundice, cyanosis, or thyromegaly. No jugular venous distension. No lower limb edema. VITAL SIGNS: His heart rate was 90, blood pressure was 116/74, temperature was 97.3, respiratory rate was 16, and oxygen saturation was 96%. EXTREMITY: Examination of the left lower extremity compared to the right showed the redness and swelling is improving, although has not resolved completely. His intake over the last 24 hours was 1240, output was 650. LABORATORY DATA: Showed that his white cell count is down to 13,100, hemoglobin 14, hematocrit 41, MCV 88 and platelet count 333,000. His chemistry showed serum sodium 133, potassium 4.2, chloride 100, bicarbonate 27, anion gap of 6, BUN 12, creatinine 1. His vancomycin trough level was 10. He apparently is positive for hepatitis B surface antigen, hepatitis B core antigen as well as hepatitis C IgG antibodies with quantitative hepatitis C RNA of . ASSESSMENT: 1. Left lower extremity deep vein thrombosis, which he continues to be on Lovenox 1 mg/kg subcutaneous twice a day. 2. Left lower extremity cellulitis, resolving slowly. He is on IV vancomycin as well as oral Bactrim. 3. His hepatitis C and B positive. Apparently were negative. 4. Polysubstance abuse including opiates, methadone, amphetamine, and methamphetamine. PLAN: To continue with IV vancomycin. Continue with oral Bactrim. Continue with pain management. ADAN GOLDSTEIN MD DR: ISAURA/vangie JOB#: [id number] / [id number]
[2018-12-04 15:06] VITALS: BP 107/68
[2018-12-04 19:40] VITALS: BP 113/73
[2018-12-05] MEDS: VANCOMYCIN 1 GM in IV NORMAL SALINE 250ML 250 ML IV SCH ×2 (02:00→10:34)
[2018-12-05] MEDS: oxyCODONE IR 5 MG TABLET PO PRN (05:24)
[2018-12-05 05:51] VITALS: BP 115/71
[2018-12-05 08:35] LABS: BASO # 0.3 x10^3/uL (0.0-0.2); BASO % 2 % (0-3); EOS # 0.3 x10^3/uL (0.0-0.7); EOS % 3 % (0-3); HEMATOCRIT 41.1 % (39.0-53.0); HEMOGLOBIN 13.7 g/dL (13.0-17.5); LYMPH # 2.5 x10^3/uL (1.0-4.8); LYMPH % 21 % (24-48); MEAN CORPUSCULAR HEMOGLOBIN 30 pg (25-35); MEAN CORPUSCULAR HGB CONC 33 g/dL (31-37); MEAN CORPUSCULAR VOLUME 89 fL (79-100); MONO # 1.5 x10^3/uL (0.0-1.1); MONO % 12 % (0-9); NEUT # 7.3 x10^3uL (1.8-7.7); NEUT % 61 % (31-73); PLATELET COUNT 324 x10^3/uL (140-400); RED BLOOD COUNT 4.61 x10^6/uL (4.30-5.70); RED CELL DISTRIBUTION WIDTH 14.4 % (11.5-14.5); WHITE BLOOD COUNT 11.9 x10^3/uL (4.0-11.0)
[2018-12-05] MEDS: LACTOBACILLUS RHAMNOSUS GG 1 CAPSULE. PO SCH (08:40)
[2018-12-05] MEDS: SMZ/TMP 800/160MG TABLET. PO SCH (08:40)
[2018-12-05] MEDS: ENOXAPARIN ** NOTE DOSE ** SYRINGE SQ SCH (08:40)
[2018-12-05 08:55] LABS: ALBUMIN 2.4 g/dL (3.4-5.0); ALBUMIN/GLOBULIN RATIO 0.5 (1.0-1.7); CALCIUM 8.2 mg/dL (8.5-10.1); GFR 82.8; TOTAL BILIRUBIN 0.5 mg/dL (0.2-1.0)
[2018-12-05] MEDS ORDERED: SULF1TAB24 PO (11:32)
[2018-12-05] MEDS ORDERED: APIX5TAB3 PO (11:32)
--- NOTE | 2018-12-05 12:48 | DS ---
DATE OF DISCHARGE: 12/05/2018 HOSPITAL COURSE: The patient is a 38-year-old male patient, who came to the Emergency Room complaining of pain and swelling, redness of his left lower extremity. He was diagnosed with left lower extremity cellulitis as well as deep vein thrombosis. He was started on Lovenox 1 mg/kg and initially started on Rocephin and Bactrim. Eventually, he had to put a PICC line, start him on vancomycin and basically all the redness, swelling and pain of his left lower extremity have largely subsided. He has no more pain and has been afebrile. His white cell count is down to 11,900 from 17,000 and a decision was made to discharge him home to continue on Eliquis 5 mg twice a day and Bactrim-DS 1 tablet twice a day for 10 days. PHYSICAL EXAMINATION: GENERAL: On examining him today, he looked well and was clearly in no apparent respiratory distress. There is no pallor, jaundice, cyanosis, or thyromegaly. No jugular venous distension. No limb edema. VITAL SIGNS: His heart rate was 83, blood pressure 115/71, temperature was 98.4, respiratory rate was 18 and oxygen saturation was 96%. HEAD, EYES, EARS, NOSE AND THROAT: Normocephalic, atraumatic. NECK: Supple. HEART: Showed normal first and second heart sounds. No gallop, rub or murmur. CHEST: Clear to auscultation. No crepitation or rhonchi. ABDOMEN: Scaphoid, soft, nontender. NEUROLOGIC: He was awake, alert, responding appropriately. All cranial nerves intact. He moves extremities without difficulty. Examination skin of the left lower extremity showed all the redness and swelling has completely subsided. He is able now to move his left lower extremity without difficulty, has extensive tattooing. LABORATORY DATA: His lab work this morning showed a white cell count of 11,900, hemoglobin 13.7, hematocrit 41, MCV 89 and a platelet count of 324,000 with normal manual differential. His chemistry showed a serum sodium 135, potassium 4, chloride 101, bicarbonate 30, anion gap of 4, BUN 13, creatinine 1, estimated GFR was 83 mL per minute. His glucose was 83, calcium was 8.2. Total bilirubin, AST, ALT, alkaline phosphatase are all elevated. Total protein 7, albumin was 2.4. TSH was normal at 1.881. His prothrombin time was 11, INR of 1.1. Urinalysis was unremarkable. Toxic screen was positive for opiates, methadone as well as amphetamine, methamphetamine. The patient is positive for hepatitis B and C, but apparently the screening for HIV 1 and 2 was reactive, but the specific antibodies were negative. DISCHARGE MEDICATIONS: He was discharged home to continue on Bactrim-DS 1 tablet twice a day for 10 days, Eliquis 5 mg twice a day for 30 days with 3 refills, famotidine 20 mg twice a day. FINAL DISCHARGE DIAGNOSES: 1. Left lower extremity cellulitis, resolved. 2. Left lower extremity deep venous thrombosis. 3. Polysubstance abuse including opiates, methadone, amphetamine, methamphetamine. 4. He has chronic hepatitis C and chronic hepatitis B with abnormal liver enzymes. ADAN GOLDSTEIN MD DR: ISAURA/vangie JOB#: [id number] / [id number]
== END 2018-12-05 13:21 | disposition home or self-care (01) | DRG 300 ==
LOC: ER 20:43 → 1 SOUTH 23:30
PROVIDERS: ADMIT Internal Medicine; ATTEND Internal Medicine
PROC: 02HV33Z Insertion of Infusion Device into Superior Vena Cava, Percutaneous Approach (ICD-10-PCS; principal; 2018-12-02)
PROC: B548ZZA Ultrasonography of Superior Vena Cava, Guidance (ICD-10-PCS; 2018-12-02)
DX: I82.819 Embolism and thrombosis of superficial veins of unspecified lower extremity (principal); B18.1 Chronic viral hepatitis B without delta-agent; L03.116 Cellulitis of left lower limb; B18.2 Chronic viral hepatitis C; F17.210 Nicotine dependence, cigarettes, uncomplicated; F19.10 Other psychoactive substance abuse, uncomplicated; Z79.01 Long term (current) use of anticoagulants; Z86.14 Personal history of Methicillin resistant Staphylococcus aureus infection; Z87.442 Personal history of urinary calculi
CPT/HCPCS: 36415; 36569; 71045; 80048; 80053; 80076; 80202; 80307; 81001; 82550; 83690; 83735; 83880; 84443; 84484; 85007; 85025; 85027; 85379; 85610; 85730; 86592; 86703; 86705; 86709; 86803; 87340; 87521; 90471; 90715; 93005; 93971; 96361; 96372; 96374; G0238; J0696; J1650; J1885; J3370; J7040; J7050; J7120; 99285-25